=== PATIENT | female | born 1985 | race Hispanic/Latino ===

== ENCOUNTER 2023-01-09 10:34 | Emergency (ER) | payer OTHER ==
[~2023-01-09] VITALS: Ht 172.7 cm; Wt 80.7 kg
[2023-01-09] MEDS ORDERED: AUVELITY ER 451 EACH (11:23)
[2023-01-09] MEDS ORDERED: VYVANSE30 MG (11:23)
[2023-01-09] MEDS ORDERED: ACETAMINOPHEN 325 MG TAB PO ONE (12:15)
[2023-01-09] MEDS ORDERED: ACETAMINOPHEN 325 MG TAB ONE (12:29)
[2023-01-09] MEDS ORDERED: Ampicillin/Sulbactam 3 GM Vial ONE (12:29)
[2023-01-09] MEDS ORDERED: SODIUM CHLORIDE 0.9% 100 ML ONE (12:30)
[2023-01-09] MEDS ORDERED: IOPAMIDOL 370 MG/ML 100 ML INFUS..BTL INJ ONE (12:40)
[2023-01-09 13:21] LABS: INR 0.94; PROTHROMBIN TIME 13.1 seconds (11.9-14.5)
[2023-01-09 13:22] LABS: PARTIAL THROMBOPLASTIN TIME 31.9 seconds (23.8-35.5)
[2023-01-09] MEDS ORDERED: AMOX TR-K CLV1 EAC2 PO (16:23)
[2023-01-09 16:30] VITALS: O2SAT 94
== END 2023-01-09 16:40 | disposition home or self-care (01) ==
LOC: FSED 10:41
DX: M79.604 Pain in right leg (principal); I67.848 Other cerebrovascular vasospasm and vasoconstriction; S81.851A Open bite, right lower leg, initial encounter; W54.0XXA Bitten by dog, initial encounter; Y99.0 Civilian activity done for income or pay; Z20.822 Contact with and (suspected) exposure to COVID-19; F17.210 Nicotine dependence, cigarettes, uncomplicated
CPT/HCPCS: 36415; 73701 ×2; 80053; 81003; 81025; 85025; 85610; 85730; 99284; J0295; J7050; Q9967; U0002